=== PATIENT | male | born 2000 | race Caucasian/White ===

== ENCOUNTER 2022-02-05 21:44 | Emergency (ER) | payer BC, OTHER ==
[~2022-02-05] VITALS: Ht 187.9 cm; Wt 95.3 kg
[2022-02-05] MEDS ORDERED: TETANUS,DIPTH,PERTUSS P/F (BOOSTRIX) 0.5 ML VIAL IM ONE (22:30)
--- NOTE | 2022-02-05 22:32 | ED Lower Extremity ---
General Chief Complaint: Lower Extremity Stated Complaint: RIGHT FOOT INJURY Source: patient Exam Limitations: no limitations History of Present Illness Date Seen by Provider: February 05, 2022 Time Seen by Provider: 22:30 Initial Comments Patient is a 22-year-old male who presents ED family for puncture wound to right plantar foot. This occurred 1 hour ago. Patient was at a graduation constitution party and stepped on a nail on a board. Immediately removed his foot with a small puncture wound to his right plantar foot. Mild bleeding. Not up-to-date on his tetanus. States he is moving his toes without any difficulties. No bruising, redness, swelling. Bleeding controlled. Patient requesting tetanus shot Allergies and Home Medications Allergies Coded Allergies: Penicillins (Verified Allergy, Unknown, 02/05/22) Patient Home Medication List Home Medication List Reviewed: Yes Cephalexin (Cephalexin) 500 Mg Tablet, 500 MG PO QID Prescribed by: DARREL PALAFOX on 02/05/22 3181 Review of Systems Constitutional: No chills, No diaphoresis, No malaise, No weakness EENTM: No blurred vision, No double vision Respiratory: No cough, No dyspnea on exertion Cardiovascular: No chest pain Gastrointestinal: No abdominal pain, No diarrhea, No nausea, No vomiting Genitourinary: No decreased output Musculoskeletal: No back pain, No joint pain Skin: other (small puncture to right plantar foot) Physical Exam Vital Signs Capillary Refill : Height, Weight, BMI Height: '" Weight: lbs. oz. kg; BMI Method: General Appearance: WD/WN, no apparent distress HEENT: PERRL/EOMI, normal ENT inspection, TMs normal, pharynx normal Neck: non-tender, full range of motion, supple, normal inspection Cardiovascular: regular rate, rhythm, no edema, no gallop, no JVD Respiratory: chest non-tender, lungs clear, normal breath sounds, no respiratory distress Gastrointestinal: normal bowel sounds, non tender, soft Back: no CVA tenderness Feet: right foot other (Small puncture wound to right plantar foot.) Neurologic/Tendon: normal sensation, normal motor functions, normal tendon functions Neurologic/Psychiatric: 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 Patient is moving his toes without difficulties. Not up-to-date on his tetanus and family requesting testing shot. Discussed imaging however patient has no severe tenderness on palpation and moving his toes without difficulties so unlikely penetrating bone. Patient moving all extremities without difficulties. Wound appears clean but did irrigate here in the ER. Discussed wound care. Topical Neosporin was applied. Patient was provided tetanus shot. Discussed discharge and antibiotics prophylactically secondary to the puncture wound. They state they will follow-up with her pcp on Monday as they are here just for the day. Scheduled to go back to [place] on Monday. Will discharge with Keflex if swelling, redness develop around the lesion. Impression Primary Impression: Puncture wound Disposition: HOME, SELF-CARE Condition: Stable Departure-Patient Inst. Decision time for Depature: 22:31 Referrals: NO,LOCAL PHYSICIAN (PCP/Family) Primary Care Physician Patient Instructions: Wound Care ED Scripts Cephalexin (Cephalexin) 500 Mg Tablet 500 MG PO QID for 7 Days, #28 TAB Prov: DEMETRIA ALVAREZ 02/05/22 DEMETRIA ALVAREZ February 05, 2022 22:32
[2022-02-05] MEDS ORDERED: CEPH500T PO (22:41)
[2022-02-05 23:45] VITALS: BP 117/66
== END 2022-02-05 22:45 | disposition home or self-care (01) ==
LOC: ER 21:49
DX: S91.331A Puncture wound without foreign body, right foot, initial encounter (principal); Z23 Encounter for immunization; W45.0XXA Nail entering through skin, initial encounter
CPT/HCPCS: 90715; 99284